=== PATIENT | male | born 1975 | race Caucasian/White ===

== ENCOUNTER 2022-06-09 09:48 | Emergency (ER) | payer OTHER, SELFPAY ==
[2022-06-09 09:50] VITALS: BP 176/113; PULSE 95; RESP 15; TEMP 36.1; O2SAT 97; BMI 27.1
[2022-06-09 10:24] LABS: Add Manual Diff / Slide Review NO; Basophils Absolute Auto 0 /uL (0-100); Basophils Percent Auto 0.3 % (0-2); Eosinophils Absolute Auto 200 /uL (0-450); Eosinophils Percent Auto 2.8 % (2-4); Hematocrit 49.3 % (41-53); Hemoglobin 16.1 g/dL (13.5-17.5); Lymphocytes Absolute Auto 1200 /uL (1100-4500); Lymphocytes Percent Auto 16.9 % (25-40); Mean Corpuscular HGB Conc 32.6 % (30-36); Mean Corpuscular Hemoglobin 26.8 PG (26-34); Mean Corpuscular Volume 82.2 fL (80-100); Monocytes Absolute Auto 400 /uL (0-900); Monocytes Percent Auto 5.8 % (3-14); Neutrophils Absolute Auto 5300 /uL (1500-7000); Neutrophils Percent Auto 74.2 % (50-75); Platelet Count 317 X10^3/uL (150-400); Red Cell Distribution Width 16.7 % (11.6-14.8); White Blood Cell Count 7.2 X10^3/uL (4.5-11.0)
[2022-06-09 10:37] LABS: HEMOLYSIS < 15 (0-50); Potassium 4.4 mmol/L (3.4-5.1)
[2022-06-09 10:38] LABS: Alanine Aminotransferase 402 IU/L (<50); Albumin 4.2 g/dL (3.5-5.0); Albumin Globulin Ratio 1.1 (1.0-2.8); Alkaline Phosphatase 60 U/L (38-126); BUN Creatinine Ratio 6.8 (6-22); Bilirubin Total 1.3 mg/dL (0.2-1.3); Blood Urea Nitrogen 7 mg/dL (9-20); Calcium 8.9 mg/dL (8.4-10.2); Carbon Dioxide 31 mmol/L (22-32); Chloride 101 mmol/L (98-107); Estimated Glomerular Filt Rate > 60 mL/min (>60); Globulin 3.7 g/dL (1.7-4.1); Glucose 99 mg/dL (70-100); Sodium 140 mmol/L (137-145); Total Protein 7.9 g/dL (6.3-8.2)
[2022-06-09 10:52] LABS: Aspartate Aminotransferase 1867 IU/L (17-59)
--- NOTE | 2022-06-09 11:15 | ED.EXTPRO ---
HPI - Extremity Problem General Chief complaint: Extremity Problem,Nontraumatic Stated complaint: exercise induced rhambo Time Seen by Provider: 06/09/22 11:01 Source: patient Mode of arrival: Ambulatory History of Present Illness HPI Narrative: 46-year-old male presenting with concern for possible rhabdomyolysis. 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 Patient reports his tightness in the extremities specifically in his muscles has mildly improved, patient's urine has started to clear from dark brownish red to clear. Patient denies other new symptoms. Related Data Previous Rx's Medication Instructions Recorded hydrocodone 5 mg-acetaminophen 325 0 tab PO Q6HP PRN #15 tabs 12/25/17 mg tablet Allergies Allergy/AdvReac Type Severity Reaction Status Date / Time No Known Drug Allergies Allergy Verified 06/09/22 09:50 Review of Systems Review of Systems Narrative: Constitutional, Eyes, ENT, Pulmonary, Cardiovascular, Gastrointestinal, Renal, Endocrine, Genitourinary, Musculoskeletal, Neurologic, Skin, and Psychiatric systems were reviewed and negative unless indicated in the HPI above. Exam Narrative Exam Narrative: Vitals reviewed. Nursing note reviewed Constitutional: interactive HENT: Moist mucous membranes EYES: No scleral icterus NECK: no masses CV: Well perfused peripherally, no cyanosis present PULM: Unlabored respirations, symmetric chest rise ABD: Non-distended MS: No gross deformities, no asymmetric edema noted SKIN: Warm and dry. PSYCH: Appropriate affect NEURO: Follows simple commands, moves extremities, interactive with exam Initial Vital Signs Initial Vital Signs: Vital Signs Temperature 97.0 F L 06/09/22 09:50 Pulse Rate 95 H 06/09/22 09:50 Respiratory Rate 15 06/09/22 09:50 Blood Pressure 176/113 H 06/09/22 09:50 Pulse Oximetry 97 06/09/22 09:50 Oxygen Delivery Method 06/09/22 09:50 Course Orders Ordered: ED Orders 06/09/22 10:10 CK [Creatine Kinase] Stat CMP [Comprehensive Metabolic Panel] Stat Complete Blood Count AUTO DIFF Stat 06/09/22 11:01 Hepatitis Acute Panel Stat 06/09/22 11:11 Prothrombin Time INR Stat Vital Signs Vital signs: Vital Signs - 8 hr 06/09/22 09:50 Temperature 97.0 F L Pulse Rate 95 H Respiratory Rate 15 Blood Pressure 176/113 H Pulse Oximetry 97 Oxygen Delivery Method Room Air MDM - Extremity (Nontraumatic) Lab Data Result diagrams: 06/09/22 10:10 06/09/22 10:10 Labs: Lab Results 06/09/22 06/09/22 06/09/22 Range/Units 10:10 10:10 10:10 WBC 7.2 (4.5-11.0) X10^3/uL RBC 6.00 H (4.5-5.9) X10^6/uL Hgb 16.1 (13.5-17.5) g/dL Hct 49.3 (41-53) % MCV 82.2 (80-100) fL MCH 26.8 (26-34) PG MCHC 32.6 (30-36) % RDW 16.7 H (11.6-14.8) % Plt Count 317 (150-400) X10^3/uL Neut % (Auto) 74.2 (50-75) % Lymph % (Auto) 16.9 L (25-40) % [place] % (Auto) 5.8 (3-14) % Eos % (Auto) 2.8 (2-4) % Baso % (Auto) 0.3 (0-2) % Neut # (Auto) 5300 (0505-2100) /uL Lymph # (Auto) 1200 (8837-6398) /uL [place] # (Auto) 400 (0-900) /uL Eos # (Auto) 200 (0-450) /uL Baso # (Auto) 0 (0-100) /uL PT (10.1-12.7) SECONDS INR (0.9-1.3) Sodium 140 (137-145) mmol/L Potassium 4.4 (3.4-5.1) mmol/L Chloride 101 (98-107) mmol/L Carbon Dioxide 31 (22-32) mmol/L BUN 7 L (9-20) mg/dL Creatinine 1.03 (0.66-1.25) mg/dL Estimated GFR > 60 (>60) mL/min BUN/Creatinine Ratio 6.8 (6-22) Glucose 99 (70-100) mg/dL Calcium 8.9 (8.4-10.2) mg/dL Total Bilirubin 1.3 (0.2-1.3) mg/dL AST 1867 H (17-59) IU/L ALT 402 H (<50) IU/L Alkaline Phosphatase 60 (38-126) U/L Total Creatine Kinase 723082 H (55-170) U/L Total Protein 7.9 (6.3-8.2) g/dL Albumin 4.2 (3.5-5.0) g/dL Globulin 3.7 (1.7-4.1) g/dL Albumin/Globulin Ratio 1.1 (1.0-2.8) 06/09/22 Range/Units 10:10 WBC (4.5-11.0) X10^3/uL RBC (4.5-5.9) X10^6/uL Hgb (13.5-17.5) g/dL Hct (41-53) % MCV (80-100) fL MCH (26-34) PG MCHC (30-36) % RDW (11.6-14.8) % Plt Count (150-400) X10^3/uL Neut % (Auto) (50-75) % Lymph % (Auto) (25-40) % [place] % (Auto) (3-14) % Eos % (Auto) (2-4) % Baso % (Auto) (0-2) % Neut # (Auto) (4032-1051) /uL Lymph # (Auto) (1291-2501) /uL [place] # (Auto) (0-900) /uL Eos # (Auto) (0-450) /uL Baso # (Auto) (0-100) /uL PT 10.9 (10.1-12.7) SECONDS INR 1.0 (0.9-1.3) Sodium (137-145) mmol/L Potassium (3.4-5.1) mmol/L Chloride (98-107) mmol/L Carbon Dioxide (22-32) mmol/L BUN (9-20) mg/dL Creatinine (0.66-1.25) mg/dL Estimated GFR (>60) mL/min BUN/Creatinine Ratio (6-22) Glucose (70-100) mg/dL Calcium (8.4-10.2) mg/dL Total Bilirubin (0.2-1.3) mg/dL AST (17-59) IU/L ALT (<50) IU/L Alkaline Phosphatase (38-126) U/L Total Creatine Kinase (55-170) U/L Total Protein (6.3-8.2) g/dL Albumin (3.5-5.0) g/dL Globulin (1.7-4.1) g/dL Albumin/Globulin Ratio (1.0-2.8) Urine Dip Bedside Urine Glucose Negative Bedside Urine Bilirubin - Negative Bedside Urine Ketone - Negative Urine Specific [place] 1.010 Bedside Urine Occult Blood +++ Bedside Urine pH 6.5 Bedside Urine Protein ++ 100 Bedside Urine Urobilinogen - Negative Bedside Urine Nitrite - Negative Bedside Urine Leukocytes - Negative Esterase MDM Narrative Medical decision making narrative: 46-year-old male presenting with concern for rhabdomyolysis in the setting of recent strenuous workout. Vital signs on presentation notable for hypertension, borderline tachycardia, otherwise reassuring. Physical exam notable for a well-appearing 46-year-old male who is in no acute distress, alert, interactive, reassuring cardiopulmonary exam, benign abdomen, patient is ambulatory without difficulty. Initial concern for rhabdomyolysis, DAVEY, metabolic derangement, nonspecific musculoskeletal screen, dehydration. Screening labs were obtained in the emergency department, notable for markedly elevated liver function tests and CK as above. Patient's kidney function is normal, patient continues to tolerate oral intake without difficulty. Patient reports that his urine output has been brisk and it is clearing back to normal. Discussed plan for admission to facilitate continued IV fluids and close laboratory analysis. However, patient declines admission in favor of discharge and close outpatient follow up. Discussed that patient's significant liver function serious disease with potential for significant. Patient expressed understanding, declines admission to the hospital declines additional fluids grossly normal with going home declined discussed for low threshold to return emergency. Instructed to follow-up 1-2 days for repeat and follow up thereafter every 3-5 days for repeat normalization. Patient instructed on outpatient care provider follow up information. Patient subsequently discharged against medical advice with close return precautions Discharge Plan Departure Patient Disposition: Left Against Medical Advice Clinical Impression: Rhabdomyolysis, Hepatitis Activity Restrictions/Additional Instructions: You are deciding to leave against medical advice. As discussed, your CK elevation and liver function tests elevation indicate that you have developed rhabdomyolysis in the setting of extensive exercise. Please continue to drink copious amounts of fluid to maintain her hydration, please return to the emergency department for repeat laboratory analysis in the next 1-2 days. If you change your mind regarding repeat evaluation/admission, you develop new or worsening symptoms, or questions/concerns arise, please return to the emergency department. Your hepatitis panel is pending. Please follow up in outpatient setting with primary care provider for further evaluation. Your CK is elevated at greater than 110,000, your AST is at approximately 1800, your ALT is at approximately 400. Prescriptions: No Action hydrocodone-acetaminophen 5 MG/325 MG tablet 0 tab PO Q6HP PRNQty: 15 0RF Stand Alone Forms: Patient Portal/API, Against Medical Advice
[2022-06-09 11:19] LABS: Prothrombin Time 10.9 SECONDS (10.1-12.7)
[2022-06-09 11:57] LABS: Creatine Kinase 110913 U/L (55-170)
--- NOTE | 2022-06-09 12:45 | PC.NURSE ---
Pt worked out hard 2 days ago--having increased bilateral upper leg pain and suspected rhabdo from increasingly dark urine. AAOx3
[2022-06-10 05:12] LABS: HBsAg Screen Negative (Negative); Hepatitis A Antibody IgM Negative (Negative); Hepatitis B Core Antibody IgM Negative (Negative); Hepatitis C Antibody <0.1 s/co ratio (0.0-0.9)
== END 2022-06-09 12:34 | disposition left against medical advice (07) ==
PROVIDERS: Emergency Provider Emergency Medicine
DX: M62.82 Rhabdomyolysis (principal); K75.9 Inflammatory liver disease, unspecified
CPT/HCPCS: 36415; 80053; 80074; 81003; 82550; 85025; 85610; 99282; 99283

== ENCOUNTER 2022-06-12 09:23 | Emergency (ER) | payer OTHER, SELFPAY ==
[2022-06-12 09:30] VITALS: BP 172/80; PULSE 78; RESP 18; TEMP 36.2; O2SAT 98
--- NOTE | 2022-06-12 09:37 | ED.RECABL ---
HPI - Recheck/Abnormal Lab/Rx General Chief Complaint: Recheck/Abnormal Lab/Rx Stated Complaint: follow up blood work T-3 Time Seen by Provider: 06/12/22 09:29 Source: patient Mode of arrival: Ambulatory History of Present Illness HPI narrative: Patient is a 46-year-old healthy male who presents today with lab checkup. 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 He noted that his urine was very dark he had some swelling and cramping. He tried to hydrate. He was seen evaluated here in the emergency department on June 09 for he was found have a CPK of greater than 110,000 along with elevated liver enzymes. He left against medical advice. He has been hydrating ever since and is here to have repeat blood work checked. He feels like his urine has cleared up he does not have any of the swelling or aches and pains as he did previously. No other complaints. Related Data Previous Rx's Medication Instructions Recorded hydrocodone 5 mg-acetaminophen 325 0 tab PO Q6HP PRN #15 tabs 12/25/ mg tablet Allergies Allergy/AdvReac Type Severity Reaction Status Date / Time No Known Drug Allergies Allergy Verified 06/09/22 09:50 Review of Systems Review of Systems ROS Unobtainable: All systems reviewed & are unremarkable except as noted in HPI and below Patient History Social History Smoking Status: Never smoker Smoking Status: Never smoker alcohol intake frequency: 0-2 drinks per day Substance Use Type: does not use Exam Initial Vital Signs Initial Vital Signs: Vital Signs Temperature 97.2 F L 06/12/22 09:30 Pulse Rate 78 06/12/22 09:30 Respiratory Rate 18 06/12/22 09:30 Blood Pressure 172/80 H 06/12/22 09:30 Pulse Oximetry 98 06/12/22 09:30 Oxygen Delivery Method 06/12/22 09:30 GENERAL: Alert well-appearing 46-year-old male and in no acute distress. HEENT: Head atraumatic,EOMI, pupils reactive, face symmetric, moist mucous membranes CARDIOVASCULAR: Regular rate and rhythm without murmurs, rubs or gallops. RESPIRATORY: Breath sounds equal bilaterally, no wheezes rales or rhonchi. ABDOMEN: Soft, nontender. Normoactive bowel sounds all 4 quadrants. No guarding or rebound. : No CVA tenderness EXTREMITIES: Normal range of motion, no clubbing or edema. Neurovascularly intact NEUROLOGICAL: Alert and oriented x4 SKIN: Warm, dry, no laceration, no petechiae, no rashes or lesions. Course Orders Ordered: ED Orders 06/12/22 09:50 CBC Auto Diff [Complete Blood Count AUTO DIFF] Stat CMP [Comprehensive Metabolic Panel] Stat CPK [Creatine Kinase] Stat UA Complete [Urinalysis and Microscopic] Stat Vital Signs Vital signs: Vital Signs - 8 hr 06/12/22 09:30 06/12/22 11:40 Temperature 97.2 F L Pulse Rate 78 63 Respiratory Rate 18 Blood Pressure 172/80 H 164/95 H Pulse Oximetry 98 97 Oxygen Delivery Method Room Air Room Air MDM - Recheck/Abnormal Lab/Rx Lab Data Result diagrams: 06/12/22 09:50 06/12/22 09:50 Labs: Lab Results 06/12/22 06/12/22 06/12/22 Range/Units 09:50 09:50 09:50 WBC 6.8 (4.5-11.0) X10^3/uL RBC 5.78 (4.5-5.9) X10^6/uL Hgb 15.8 (13.5-17.5) g/dL Hct 47.2 (41-53) % MCV 81.7 (80-100) fL MCH 27.4 (26-34) PG MCHC 33.5 (30-36) % RDW 16.3 H (11.6-14.8) % Plt Count 299 (150-400) X10^3/uL Neut % (Auto) 67.2 (50-75) % Lymph % (Auto) 21.8 L (25-40) % [place] % (Auto) 7.8 (3-14) % Eos % (Auto) 2.7 (2-4) % Baso % (Auto) 0.5 (0-2) % Neut # (Auto) 4600 (0982-1732) /uL Lymph # (Auto) 1500 (3018-8156) /uL [place] # (Auto) 500 (0-900) /uL Eos # (Auto) 200 (0-450) /uL Baso # (Auto) 0 (0-100) /uL Sodium 138 (137-145) mmol/L Potassium 4.8 (3.4-5.1) mmol/L Chloride 98 (98-107) mmol/L Carbon Dioxide 31 (22-32) mmol/L BUN 10 (9-20) mg/dL Creatinine 1.08 (0.66-1.25) mg/dL Estimated GFR > 60 (>60) mL/min BUN/Creatinine Ratio 9.3 (6-22) Glucose 89 (70-100) mg/dL Calcium 9.0 (8.4-10.2) mg/dL Total Bilirubin 1.4 H (0.2-1.3) mg/dL AST 940 H (17-59) IU/L ALT 431 H (<50) IU/L Alkaline Phosphatase 60 (38-126) U/L Total Creatine Kinase 76298 H D (55-170) U/L Total Protein 7.7 (6.3-8.2) g/dL Albumin 4.2 (3.5-5.0) g/dL Globulin 3.5 (1.7-4.1) g/dL Albumin/Globulin Ratio 1.2 (1.0-2.8) Urine Color Yellow Urine Appearance Clear Urine pH 7.5 (4.5-8.0) Ur Specific [place] 1.010 (1.000-1.035) Urine Protein Trace H (Negative) Urine Glucose (UA) Negative (Negative) g/dL Urine Ketones Negative (NEGATIVE) Urine Occult Blood 2+ H (Negative) Urine Nitrate Negative (Negative) Urine Bilirubin Negative (NEGATIVE) Urine Urobilinogen 0.2 (0.2) E.U./dL Ur Leukocyte Esterase Negative (NEGATIVE) Urine RBC 0-1/hpf (0-5/HPF) Urine WBC 0-1/hpf (0-5/HPF) Urine Bacteria Few (2-10) H (None) Ur Culture Indicated? Cult not indicated Urine Dip Bedside Urine Glucose Negative Bedside Urine Bilirubin - Negative Bedside Urine Ketone - Negative Urine Specific [place] 1.005 Bedside Urine Occult Blood +++ Bedside Urine pH 8.0 Bedside Urine Protein - Negative Bedside Urine Urobilinogen - Negative Bedside Urine Nitrite - Negative Bedside Urine Leukocytes - Negative Esterase MDM Narrative Medical decision making narrative: Patient is a healthy 46-year-old male who presents for recheck of his labs after being diagnosed with rhabdomyolysis with a CPK of 110,913 with elevated liver enzymes on 06/09/2022. He has been hydrating at home he has been urinating he feels like he is overall doing better he is had clear urination. Today blood work does show improvement in his previous labs today CPK is 23,511 with AST of 940 ALT 431 and a bilirubin of 1.4. He is absolutely no right upper quadrant pain. He does have some myoglobin in his urine. He is tolerating fluids he is urinating overall feeling better. At this time I encouraged him to continue drinking avoiding alcohol and avoiding Tylenol and avoiding exercise. He is improving but not yet back to normal. Recommend repeat blood work next week. MDM * differential diagnosis includes but not limited to: Rhabdomyolysis * Prior records reviewed: Previous ED records * My lab interpretation: CPK today 23,000 see above continues to have liver enzymes but all trending downward * My imaging interpretation: None * Clinical Decision Rules/Scores evaluated: None * Independent discussions with: Not * Social Considerations: None * Shared Decision Making: With patient *Disposition: see below, along with detailed discharge instructions that have been reviewed with patient as well as indications for ED re-evaluation and additional outpatient follow up Discharge Plan Departure Patient Disposition: Home Clinical Impression: Rhabdomyolysis Instructions: Rhabdomyolysis Activity Restrictions/Additional Instructions: Nice to see you!! sorry under the circumstances. Feel better. *You have been diagnosed with rhabdomyolysis *What to do: Continue to increase fluid intake. Your blood work shows improvement but numbers are not yet back to normal. I recommend that you have them rechecked next week, either walk-in clinic ED or PCP Avoid Tylenol Avoid alcohol Avoid strenuous exercise *Continue to take medications as directed *Follow up with your primary care provider in 2-3 days or call [phone] *Return to ER if you should have dark urine muscle pain or any new, worsening or concerning symptoms Prescriptions: No Action hydrocodone-acetaminophen 5 MG/325 MG tablet 0 tab PO Q6HP PRNQty: 15 0RF Referrals: Carlos,DoctorMD [Primary Care Provider] - Stand Alone Forms: Patient Portal/API
[2022-06-12 10:06] LABS: Add Manual Diff / Slide Review NO; Basophils Absolute Auto 0 /uL (0-100); Basophils Percent Auto 0.5 % (0-2); Eosinophils Absolute Auto 200 /uL (0-450); Eosinophils Percent Auto 2.7 % (2-4); Hematocrit 47.2 % (41-53); Hemoglobin 15.8 g/dL (13.5-17.5); Lymphocytes Absolute Auto 1500 /uL (1100-4500); Lymphocytes Percent Auto 21.8 % (25-40); Mean Corpuscular HGB Conc 33.5 % (30-36); Mean Corpuscular Hemoglobin 27.4 PG (26-34); Mean Corpuscular Volume 81.7 fL (80-100); Monocytes Absolute Auto 500 /uL (0-900); Monocytes Percent Auto 7.8 % (3-14); Neutrophils Absolute Auto 4600 /uL (1500-7000); Neutrophils Percent Auto 67.2 % (50-75); Platelet Count 299 X10^3/uL (150-400); Red Blood Cell Count 5.78 X10^6/uL (4.5-5.9); Red Cell Distribution Width 16.3 % (11.6-14.8); White Blood Cell Count 6.8 X10^3/uL (4.5-11.0)
[2022-06-12 10:15] LABS: Appearance Urine UA CLEAR; Bilirubin Urine UA NEGATIVE (NEGATIVE); Color Urine UA YELLOW; Glucose Urine UA NEGATIVE (Negative); Ketones Urine UA NEGATIVE (NEGATIVE); Leukocyte Esterase Urine UA NEGATIVE (NEGATIVE); Nitrite Urine UA NEGATIVE (Negative); Occult Blood Urine UA 2+ (Negative); Protein Urine UA TRACE (Negative); Urobilinogen Urine UA 0.2 E.U./dL (0.2); pH Urine UA 7.5 (4.5-8.0)
[2022-06-12 10:18] LABS: Alanine Aminotransferase 431 IU/L (<50); Albumin 4.2 g/dL (3.5-5.0); Albumin Globulin Ratio 1.2 (1.0-2.8); Alkaline Phosphatase 60 U/L (38-126); BUN Creatinine Ratio 9.3 (6-22); Bilirubin Total 1.4 mg/dL (0.2-1.3); Blood Urea Nitrogen 10 mg/dL (9-20); Carbon Dioxide 31 mmol/L (22-32); Chloride 98 mmol/L (98-107); Estimated Glomerular Filt Rate > 60 mL/min (>60); Globulin 3.5 g/dL (1.7-4.1); Glucose 89 mg/dL (70-100); HEMOLYSIS < 15 (0-50); Potassium 4.8 mmol/L (3.4-5.1); Sodium 138 mmol/L (137-145); Total Protein 7.7 g/dL (6.3-8.2)
[2022-06-12 10:27] LABS: Aspartate Aminotransferase 940 IU/L (17-59)
[2022-06-12 10:34] LABS: Bacteria Urine Few (2-10); Culture Indicated Urine Cult Not Indicated; RBC Urine 0-1/HPF (0-5/HPF); WBC Urine 0-1/HPF (0-5/HPF)
[2022-06-12 10:58] LABS: Creatine Kinase 23511 U/L (55-170)
[2022-06-12 11:40] VITALS: BP 164/95; PULSE 63; O2SAT 97
== END 2022-06-12 11:54 | disposition home or self-care (01) ==
PROVIDERS: Emergency Provider Emergency Medicine
DX: M62.82 Rhabdomyolysis (principal)
CPT/HCPCS: 36415; 80053; 81001; 81003; 82550; 85025; 99283

== ENCOUNTER → 2023-11-20 11:54 | Outpatient (CLI) | payer OTHER, SELFPAY | PROVIDERS: Visit Provider Nurse Practitioner Family | DX: J02.9 Acute pharyngitis, unspecified (principal) | CPT/HCPCS: 87070 ==